=== PATIENT | female | born 1995 | race Caucasian/White ===

== ENCOUNTER 2022-08-16 17:16 | Emergency (ER) | payer BC ==
[2022-08-16 17:56] LABS: BASO # 0.02 K/mm3 (0.02-0.10); EOS % 2.5 % (1.0-5.0); HEMATOCRIT 41.8 % (37.0-47.0); HEMOGLOBIN 13.3 g/dL (12.5-16.0); LYMPH# 1.98 K/mm3 (1.50-4.00); MEAN CELL VOLUME 86 fl (78-100); MEAN CORPUSCULAR HEMOGLOBIN 27 pg (27-31); MEAN CORPUSCULAR HGB CONC 32 g/dL (33-37); MEAN PLATELET VOLUME 9.1 fl (7.4-10.4); NEU # 4.87 K/mm3 (1.40-6.50); PLATELET COUNT 347 K/mm3 (130-400); RED BLOOD COUNT 4.89 M/mm3 (4.10-5.30); RED CELL DISTRIBUTION WIDTH 14.1 % (11.5-14.5); WHITE BLOOD COUNT 7.9 K/mm3 (4.8-10.8)
[2022-08-16 18:02] LABS: POTASSIUM 3.3 mmol/L (3.5-5.1)
[2022-08-16 18:03] LABS: CALCIUM 9.2 mg/dL (8.3-10.5)
[2022-08-16] MEDS ORDERED: ZOFRAN ODT4 MG PO (18:39)
[2022-08-16 18:50] VITALS: BP 138/78
== END 2022-08-16 18:50 | disposition home or self-care (01) ==
LOC: ED 17:16
PROVIDERS: Family Medicine
DX: A08.4 Viral intestinal infection, unspecified (principal); Z28.310 Unvaccinated for COVID-19